=== PATIENT | male | born 1955 | race Caucasian/White ===

== ENCOUNTER 2016-11-07 21:58 | Emergency (ER) | payer OTHER, MEDICAID ==
[~2016-11-07] VITALS: Ht 167.6 cm; Wt 81.6 kg
[2016-11-07 22:00] VITALS: BP_SYST 141
[2016-11-08] MEDS ORDERED: MORPHINE SULFATE 10 MG/ML VIAL IM ONE
[2016-11-08] MEDS ORDERED: DIPHENHYDRAMINE INJ 50 MG/ML VIAL IM ONE
[2016-11-08 00:43] VITALS: BP_SYST 135
== END 2016-11-08 00:43 | disposition home or self-care (01) ==
LOC: SED 21:58
DX: G89.29 Other chronic pain (principal); M54.5 Low back pain; Z88.1 Allergy status to other antibiotic agents
CPT/HCPCS: 96372; 99284; J1200; J2270